=== PATIENT | female | born 1945 | race Caucasian/White ===

== ENCOUNTER → 2018-03-20 | Outpatient (CLI) | payer MEDICARE, OTHER ==
--- NOTE | 2018-03-24 10:38 | PCVCIMAG ---
APPROVED REPORT Study performed: 03/20/2018 13:57:25 Exam: Stress Echocardiogram Indication: Atrial Fibrillation, Hyperlipidemia, Hypertension Patient Location: Echo lab Stress Nurse: Laquita Rader RN Room #: 2 Status: routine Ht: 5 ft 10 in HR: 64 bpm BP: 116/80 mmHg Rhythm: NSR Medical History Medical History: HTN, Hyperlipidemia, Paroxysmal Atrial Fibrillation Cardiac Risk Factors: HTN, Hyperlipidemia Pretest Chest Pain Characteristics: No chest pain Exercise History: Physically active Procedure The patient underwent Stress Test using the Armando Protocol. Blood pressure, heart rate, and EKG were monitored. An Echocardiogram was performed by pet care technician in four stages in quad fashion. At peak stress, four selected images were obtained and placed side by side with resting images for comparison. Stress Test Details Stress Test: Exercise stress testing was performed using a Armando protocol. HR Resting HR: 64 bpmMax Heart Rate (APMHR): 147 bpm Max HR Achieved: 153 bpmTarget HR (85% APMHR): 124 bpm % of APMHR: 104 Recovery HR: 70 bpm HR response to stress: Normal HR response to stress BP Resting BP: 116/80 mmHg Max BP: 174/82 mmHg Recovery BP: 144/76 mmHg ECG Resting ECG: Sinus Rhythm Stress ECG: Sinus Rhythm ST Change: Non-ischemic Arrhythmia: None Recovery ECG: Sinus Rhythm Recovery ST Change: Non-ischemic Recovery Arrhythmia: None Clinical Reason for Termination: Maximal effort Stress Symptoms: none Exercise duration: 7 min 45 sec Highest Stage Achieved: Stage 3: 3.4 mph at 14% grade. Exercise capacity: 10.1 METs Overall Exercise Capacity for Age: Average Scale: Sedentary Angina Score: None No complications. Stress ECG Conclusion The patient exercised according to the ARMANDO protocol for 7:45 mins; achieving a work level of 10.1 METS. The resting heart rate of 64 bpm jennie to a maximum heart rate of 153 bpm. This value represent 104% of the maximal, age-predicted heart rate. The resting blood pressure of 116/80 mmHg, jennie to a maximum blood pressure of 174/82 mmHg. The exercise test was stopped due to fatigue . Pre-Stress Echo The resting Echocardiogram showed normal left ventricular contractility with an estimated Ejection Fraction of about 55-60%. Normal wall motion in all segments on baseline images. Post-Stress Echo The stress Echocardiogram showed normal left ventricular contractility with an estimated Ejection Fraction of about 65-70%. Normal augmentation of wall motion in all segments on post stress images. Clinical No clinical or ECG evidence for ischemia. Conclusion Clinical Response: Non-ischemic Exercise Capacity: Average Stress ECG Response: Non-ischemic Stress Echo Images: Non-ischemic No clinical, EKG or echocardiographic evidence for ischemia. No echocardiographic evidence for exercise induced ischemia. Normal stress echocardiogram with maximal exercise stress. <Conclusion> No clinical, EKG or echocardiographic evidence for ischemia. No echocardiographic evidence for exercise induced ischemia. Normal stress echocardiogram with maximal exercise stress.
== END | disposition home or self-care (01) ==
LOC: PCVCIMAG 14:07
PROVIDERS: ATTEND Internal Medicine Cardiovascular Disease
DX: I48.0 Paroxysmal atrial fibrillation (principal); I10 Essential (primary) hypertension; E78.5 Hyperlipidemia, unspecified
CPT/HCPCS: 93325; 93351

== ENCOUNTER → 2018-12-16 | Outpatient (CLI) | payer MEDICARE, OTHER | END | disposition home or self-care (01) | LOC: PCVCCLINIC 14:00 | PROVIDERS: ATTEND Internal Medicine Cardiovascular Disease | DX: I48.0 Paroxysmal atrial fibrillation (principal); E78.00 Pure hypercholesterolemia, unspecified; I10 Essential (primary) hypertension; R94.31 Abnormal electrocardiogram [ECG] [EKG]; R00.2 Palpitations; R00.1 Bradycardia, unspecified; Z88.8 Allergy status to other drugs, medicaments and biological substances; Z79.82 Long term (current) use of aspirin | CPT/HCPCS: 36415; 80061; 93005; G0463 ==